=== PATIENT | male | born 1980 | race Caucasian/White ===

== ENCOUNTER 2018-03-07 05:27 | Day surgery (SDC) | payer BC, OTHER ==
[~2018-03-07] VITALS: Ht 185.4 cm; Wt 106.6 kg
--- NOTE | ~2018-03-07 | O ---
[facility] [place] [address] OPERATIVE REPORT Name: LYDIACLARISSE Benita Room #: 150-1 [facility] M..#: [id number] Admission: 03/07/18 Attend Phys: Ld Brown MD Discharge: Date of : 76 Report #: [id number] THIS REPORT FOR: //name// CC: Lis Brown DATE OF SERVICE: 03/07/2018 PREOPERATIVE DIAGNOSES: Chronic tonsillitis with tonsillar hypertrophy and sleep apnea. POSTOPERATIVE DIAGNOSES: Chronic tonsillitis with tonsillar hypertrophy and sleep apnea. OPERATIVE PROCEDURE: Tonsillectomy. ANESTHESIA: General endotracheal. DESCRIPTION OF PROCEDURE: The patient was taken to the operating room and placed in supine position. General anesthesia was induced by endotracheal intubation. Once adequate general anesthesia was obtained, the patient was draped in a sterile manner. A Kendra-Jean mouth gag was placed in the patient's mouth and the tongue was deviated upward. The right tonsil was grasped and deviated towards midline. An incision was placed in the anterior tonsillar pillar using the Bovie electrocautery and a plane between tonsillar capsule and tonsillar fossa was established. Dissection was carried out in this plane using the Bovie and hemostasis was achieved during the dissection. Dissection was carried out from superior to inferior. The inferior pole was incised, posterior tonsillar mucosa was incised. The tonsil was removed and sent to pathology. The left tonsil was removed in exactly the same manner. The area was then irrigated with normal saline. Hemostasis was verified in the tonsillar beds. The mouth gag was removed. During the waking up period, it was noted that there was some bleeding coming from the mouth. The mouth gag was replaced. A bleeding site was found at the mid portion of the right tonsillar fossa and it was cauterized. The mouth gag was then removed. Blood loss of procedure was 50 mL. The patient was then awoken and taken to the recovery room in stable condition for postoperative monitoring. By: [id number] Ld Brown MD /nt
[~2018-03-07 05:27] MED LIST: AMARYL4 MG PO; FENOFIBRATE160 MG PO; GLUCOPHAGE XR500 MG PO; LIPITOR 20 MG T20 M1 PO; LOSARTAN POTAS100 MG PO; NORVASC5 MG PO; PIOGLITAZONE30 MG PO
[2018-03-07 07:00] VITALS: BP 171/91
--- NOTE | 2018-03-07 08:16 | H ---
[facility] [place] [address] HISTORY AND PHYSICAL Name: CLARISSE FREEMAN Room #: 150-1 [facility] M.R.#: [id number] Admission: 03/07/18 Attend Phys: Ld Brown MD Discharge: Date of : 76 Report #: [id number] THIS REPORT FOR: //name// CC: Lis Brown DATE OF PROCEDURE: 03/07/2018. HISTORY OF PRESENT ILLNESS: The patient has intermittent swelling of the left parotid gland. He has history of enlarged tonsils and symptoms of obstructive sleep apnea. He failed a sleep test several years ago and tried the CPAP machine without much success. He is tired during the day and wakes up a lot during the night. PAST MEDICAL HISTORY: Otherwise, significant for diabetes and high blood pressures. MEDICATIONS: Include metformin, glimepiride, amlodipine, losartan. ALLERGIES: He is allergic to PENICILLIN. PHYSICAL EXAMINATION: HEENT: He had 4+ enlarged tonsils which almost meet in the midline. They do not appear to be infected. He had some mild, firm diffuse swelling of the tail of the parotid gland on the left side. IMPRESSION: Tonsillar hypertrophy with chronic tonsillitis and symptoms of obstructive sleep apnea. PLAN: Tonsillectomy. <ELECTRONICALLY SIGNED> By: Ld Brown MD 03/07/18 0816 [id number] Ld Brown MD /romulo
[2018-03-07 09:14] VITALS: BP 171/91
--- NOTE | 2018-03-09 13:08 | PATH ---
[facility] [address] [place] [address] PATHOLOGY RPT PROCEDURE Name: CLARISSE ROSA Room #: DEP [facility] M.R.#: [id number] Admission: 03/07/18 Date of : 76 Discharge: 03/07/18 Report #: [id number] Path Case #: [id number] [facility] Accession Number: [id number] . 01 Material submitted: . PART A: RIGHT TONSIL PART B: LEFT TONSIL . 01 Clinical history: . Chronic tonsillitis . 02 Diagnosis: A. Tonsil, right tonsil, tonsillectomy: - Acutely inflamed squamous epithelium overlying lymphoid tissue with reactive hyperplasia. - Actinomyces species present. . B. Tonsil, left tonsil, tonsillectomy: - Acutely inflamed squamous epithelium overlying lymphoid tissue with reactive hyperplasia. - Actinomyces species present. (IUV/db; 03/08/2018) LBQ/03/08/2018 . 02 Electronically signed: . Janay Owens MD, Pathologist NPI- [id number] . 01 Gross description: . A. The specimen is received in formalin, labeled "Clarisse Rosa, right tonsil", is an enlarged martines-pink, rubbery tonsil measuring 3.7 x 1.5 x 1.2 cm. Sectioning reveals martines-pink crypts and several sulfur granules. No discrete masses is identified. [employer] tissue is submitted in A1. . B. The specimen is received in formalin, labeled "Clarisse Rosa, left tonsil", is an enlarged martines-pink, rubbery tonsil measuring 3.5 x 1.5 x 1.5 cm. Sectioning reveals martines-pink crypts and several sulfur granules. No discrete masses is identified. [employer] tissue is submitted in B1. (SWS; 03/07/2018) SHS/SHS . 02 Pathologist provided ICD-10: J03.90, A42.89 . 02 CPT . 345645, 630911 Specimen Comment: A courtesy copy of [place] [address] PATHOLOGY RPT PROCEDURE Name: CLARISSE ROSA Room #: DEP [facility].#: [id number] Admission: 03/07/18 Date of : 76 Discharge: 03/07/18 Report #: [id number] Path Case #: [id number] Specimen Comment: [phone], . Specimen Comment: Report sent to and Performed at: [address] [facility] [address], [place], [place] [id number] MD Connor Almonte MD Phone: [phone] Performed at: [address] [facility] [id number] MD Janay Owens MD Phone: [phone]
== END 2018-03-07 11:05 | disposition home or self-care (01) ==
LOC: TBA 05:27 → OR 05:27 → TBA 05:28 → OR 09:42
DX: J35.01 Chronic tonsillitis (principal); G47.30 Sleep apnea, unspecified; I10 Essential (primary) hypertension; E78.5 Hyperlipidemia, unspecified; E11.9 Type 2 diabetes mellitus without complications; Z88.0 Allergy status to penicillin; Z79.899 Other long term (current) drug therapy; Z98.890 Other specified postprocedural states
CPT/HCPCS: 50010; 50101; 62110; 62900; 64032; 70005